=== PATIENT | female | born 1960 | race American Indian/Alaskan Native ===

== ENCOUNTER → 2022-01-25 | Outpatient (CLI) | payer OTHER ==
[~2022-01-25] MED LIST: ALPR.5 PO; ALPR1; BELPTAB PO; BUSP10; CIPR500 PO; ESTR2; Mobic15 MG; OMEP20ER PO; OXYACE5T PO; Omeprazole20 M1; PROG100; PROM25 PO; Pravachol40 MG; Prozac20 MG; [UNRECOGNIZED DRUG - OTHER]
[2022-01-26 15:09] LABS: HPV 16 Negative (Negative); HPV 18 Negative (Negative); HPV OTHER HR TYPES Negative (Negative)
== END | disposition home or self-care (01) ==
LOC: LAB 17:07 → LAB SHORT 17:07
PROVIDERS: Obstetrics & Gynecology
DX: Z01.419 Encounter for gynecological examination (general) (routine) without abnormal findings (principal)
CPT/HCPCS: 87624; G0123

== ENCOUNTER 2023-10-02 15:52 | Emergency (ER) | payer OTHER ==
[~2023-10-02] VITALS: Ht 165.1 cm; Wt 81.7 kg
[2023-10-02 16:06] VITALS: BP 149/78
[2023-10-02 16:32] LABS: BASOPHILS ABSOLUTE AUTO 0.11 K/mm3 (0.00-0.23); BASOPHILS PERCENT AUTO 1 % (0-2); EOSINOPHILS ABSOLUTE AUTO 0.56 K/mm3 (0.00-0.68); EOSINOPHILS PERCENT AUTO 4 % (0-6); Hematocrit 38.8 % (33.0-51.0); Hemoglobin 13.3 g/dL (11.5-16.0); IMMATURE GRAN ABSOLUTE AUTO 0.08 K/mm3 (0.00-0.10); IMMATURE GRAN PERCENT AUTO 1 % (0-1); LYMPHOCYTES ABSOLUTE AUTO 1.77 K/mm3 (0.84-5.20); LYMPHOCYTES PERCENT AUTO 11 % (21-46); MONOCYTES ABSOLUTE AUTO 1.09 K/mm3 (0.16-1.47); MONOCYTES PERCENT AUTO 7 % (4-13); Mean Corpuscular HGB 29.1 pg (26.0-34.0); Mean Corpuscular HGB Conc 34.3 g/dL (31.5-36.5); Mean Corpuscular Volume 85 fL (80-100); Mean Platelet Volume 9.3 fL (9.1-12.4); NEUTROPHILS PERCENT AUTO 77 % (41-73); Platelet Count 549 K/mm3 (150-400); RDW Coefficient Variation 12.8 % (11.7-14.2); RDW Standard Deviation 39.3 fL (35.1-46.3); Red Blood Cell Count 4.57 M/mm3 (3.80-5.20); White Blood Cell Count 16.01 K/mm3 (4.00-11.30)
[2023-10-02 17:01] LABS: Influenza A, PCR NEGATIVE (NEGATIVE); Influenza B, PCR NEGATIVE (NEGATIVE); Resp Syncytial Virus, PCR NEGATIVE (NEGATIVE); SARS-Cov-2 (COVID-19) PCR, MMC NEGATIVE (NEGATIVE)
[2023-10-02 17:05] LABS: Albumin, Blood 3.7 g/dL (3.4-5.0); Albumin/Globulin Ratio 0.8 (0.8-1.8); Bilirubin, Total 0.5 mg/dL (0.1-1.0); Bun/Creatinine Ratio 13.3 (12.0-20.0); Calcium, Blood 9.8 mg/dL (8.5-10.1); Creatinine, Blood 0.68 mg/dL (0.40-1.00); Globulin, Blood 4.8 g/dL (2.2-4.0); Potassium, Blood 3.6 mmol/L (3.5-5.5); Total Protein, Blood 8.5 g/dL (6.4-8.2)
== END 2023-10-02 17:22 | disposition home or self-care (01) ==
LOC: ER 15:52
PROVIDERS: Physician Assistant
DX: J18.9 Pneumonia, unspecified organism (principal); Z79.899 Other long term (current) drug therapy; Z87.891 Personal history of nicotine dependence
CPT/HCPCS: 0241U; 36415; 80053; 85025; 99283

== ENCOUNTER 2024-09-06 08:37 | Day surgery (SDC) | payer OTHER ==
[~2024-09-06 08:37] MED LIST changes: -ALPR1; -ESTR2; +Estradiol0.5 MG PO; +MELO7.5 PO; -Mobic15 MG
[2024-09-10] MEDS ORDERED: Aspir 8181 MG PO (13:36)
[2024-09-10] MEDS ORDERED: LOPID600 MG PO (13:38)
[2024-09-10] MEDS ORDERED: MAGNESIUM OXID500 MG (13:38)
[2024-09-10] MEDS ORDERED: MELO7.5 (13:39)
[2024-09-10] MEDS ORDERED: METO10 PO (13:41)
[2024-09-10] MEDS ORDERED: PANT40 PO (13:42)
[2024-09-10] MEDS ORDERED: VENL75ER PO (13:43)
[2024-09-10] MEDS ORDERED: SUCR1 PO (13:43)
[2024-09-10] MEDS ORDERED: Vitamin B Comple1 EA PO (13:43)
== END 2024-09-06 23:00 | disposition home or self-care (01) ==
LOC: MOI US 08:37
DX: C50.411 Malignant neoplasm of upper-outer quadrant of right female breast (principal); N63.11 Unspecified lump in the right breast, upper outer quadrant; Z17.0 Estrogen receptor positive status [ER+]; Z79.82 Long term (current) use of aspirin; Z79.899 Other long term (current) drug therapy
CPT/HCPCS: 19285; 77065; A4648

== ENCOUNTER 2024-09-16 06:11 | Day surgery (SDC) | payer OTHER ==
[2024-09-16] VITALS (9 sets, daily range): BP systolic 125–156; BP diastolic 75–99
[~2024-09-16 06:11] MED LIST changes: +Aspir 8181 MG PO; +CeFAZolin Sodium 2,000 MG in NS 100 ML IV SCH; +LOPID600 MG PO; +Lactated Ringer's 1,000 ML IV SCH; +MAGNESIUM OXID500 MG; +MELO7.5; +METO10 PO; +PANT40 PO; +SUCR1 PO; +VENL75ER PO; +Vitamin B Comple1 EA PO
[2024-09-16] MEDS ORDERED: propofoL 20 ML IV ONE ×3 (06:43→07:32)
[2024-09-16] MEDS ORDERED: FentaNYL Citrate 50 MCG/ML 2 ML Injection ONE (06:43)
[2024-09-16] MEDS ORDERED: Ondansetron HCl 2 MG / ML 2ML Vial ONE (06:44)
[2024-09-16] MEDS ORDERED: Dexamethasone Sod Phos 10 MG/ML 1ML VIAL ONE (06:44)
[2024-09-16] MEDS ORDERED: Bupivacaine 0.5% HCl 5 MG/ML 30MLVIAL ONE (07:02)
[2024-09-16] MEDS ORDERED: Midazolam HCl 1MG / ML 2ML Vial ONE (07:15)
[2024-09-16] MEDS ORDERED: Glycopyrrolate 0.2 MG/ML 5ML VIAL ONE (07:41)
[2024-09-16] MEDS ORDERED: Ketorolac Tromethamine 30mg Vial ONE (08:02)
[2024-09-16] MEDS ORDERED: HYDROcodone 5-APAP 325 TAB PO PRN (08:45)
--- NOTE | 2024-09-16 09:24 | NUR ---
Discharge instructions reviewed with patient. Patient verbalizes understanding. Copy given to patient to take home. Dressings c/d/i. Breast binder in place. Prescriptions sent electeronically. Patient States Post-Procedure ride home has been arranged. Discharged via wheelchair to private car for ride home.
== END 2024-09-16 09:26 | disposition home or self-care (01) ==
LOC: ORSCMMR 06:11 → ORD 07:30 → ORSCMMR 07:30
PROVIDERS: Surgery
PROC: 0HBT0ZX Excision of Right Breast, Open Approach, Diagnostic (ICD-10-PCS; principal; 2024-09-16 07:30)
DX: C50.911 Malignant neoplasm of unspecified site of right female breast (principal); Z17.0 Estrogen receptor positive status [ER+]; Z17.21 Progesterone receptor positive status; Z17.32 Human epidermal growth factor receptor 2 negative status; G47.33 Obstructive sleep apnea (adult) (pediatric); K21.9 Gastro-esophageal reflux disease without esophagitis; E66.9 Obesity, unspecified; Z68.33 Body mass index [BMI] 33.0-33.9, adult; Z79.899 Other long term (current) drug therapy
CPT/HCPCS: 76098; 88307; 88341; 88342; 88360; J0690; J1100; J1885; J2250; J2405; J2704; J3010; J7120

== ENCOUNTER 2024-10-07 08:16 | Day surgery (SDC) | payer OTHER ==
[~2024-10-07] VITALS: Ht 165.1 cm; Wt 89.5 kg
[2024-10-07] VITALS (16 sets, daily range): BP systolic 112–135; BP diastolic 59–83
[~2024-10-07 08:16] MED LIST changes: +Bupivacaine 0.5% HCl 5 MG/ML 30MLVIAL ONE; +CeFAZolin Sodium 2,000 MG VIAL ONE
--- NOTE | 2024-10-07 09:09 | NUR ---
History, Chart, Medications and Allergies reviewed before start of procedure. Pre-Op teaching done. Pt verbalizes understanding. Patient confirms NPO status and agrees with scheduled surgery. Patient States Post-Procedure ride home has been arranged WITH . PT UNABLE TO REMOVE 4TH FINGER RING ON L HAND AND 4TH FINGER RING ON R HAND. LOANEY CONSENT SIGNED. PT REQUESTS TO LEAVE UNDERWEAR ON. BASKET PATCHER NOTIFIED.
[2024-10-07] MEDS ORDERED: Midazolam HCl 1MG / ML 2ML Vial ONE (10:01)
[2024-10-07] MEDS ORDERED: Rocuronium Bromide 10 MG/ML 5ML Injection IV ONE (10:01)
[2024-10-07] MEDS ORDERED: FentaNYL Citrate 50 MCG/ML 2 ML Injection ONE ×2 (10:01→12:22)
[2024-10-07] MEDS ORDERED: Dexamethasone Sod Phos 10 MG/ML 1ML VIAL ONE (10:01)
[2024-10-07] MEDS ORDERED: Ondansetron HCl 2 MG / ML 2ML Vial ONE (10:01)
[2024-10-07] MEDS ORDERED: propofoL 20 ML IV ONE ×3 (10:01→10:31)
[2024-10-07] MEDS ORDERED: Ketorolac Tromethamine 30mg Vial ONE (11:45)
[2024-10-07] MEDS ORDERED: HYDROcodone 5-APAP 325 TAB PO PRN (11:50)
[2024-10-07] MEDS ORDERED: Metoclopramide HCl 5MG / ML 2ML Vial ONE (12:22)
--- NOTE | 2024-10-07 13:07 | NUR ---
1300 RECEIVED PT FROM PACU AWAKE, HAS RT BREAST AND AXILLARY INCISION WITH EXOFEN D&I,
--- NOTE | 2024-10-07 13:49 | NUR ---
1330 PT HAVING NO PAIN, VSS TOLERATED COFFEE AND PUDDING. RIGHT BREAST INCISION AND RT AXILLARY INCISION INTACT AND CLEAR WITH SKIN GLUE. DC INSTRUCTS GIVEN. 1345 DC HOME TO CAR VIA W/C, CARE TURNED OVER TO
== END 2024-10-07 23:00 | disposition home or self-care (01) ==
LOC: ORSCMMR 08:16 → NM 08:16 → ORSCMMR 08:17 → NM 08:30 → ORSCMMR 23:00
PROVIDERS: Surgery
PROC: 0HBT0ZZ Excision of Right Breast, Open Approach (ICD-10-PCS; principal; 2024-10-07 09:30)
PROC: 07B50ZX Excision of Right Axillary Lymphatic, Open Approach, Diagnostic (ICD-10-PCS; principal; 2024-10-07 09:30)
DX: C50.911 Malignant neoplasm of unspecified site of right female breast (principal); Z17.0 Estrogen receptor positive status [ER+]; Z17.21 Progesterone receptor positive status; G47.33 Obstructive sleep apnea (adult) (pediatric); K21.9 Gastro-esophageal reflux disease without esophagitis; Z79.899 Other long term (current) drug therapy
CPT/HCPCS: 38792; 88307; 88342; A9520; J0690; J1100; J1885; J2250; J2405; J2704; J2765; J3010; J7120

== ENCOUNTER → 2024-11-05 | Outpatient (CLI) | payer OTHER ==
[~2024-11-05] MED LIST changes: -Bupivacaine 0.5% HCl 5 MG/ML 30MLVIAL ONE; -CeFAZolin Sodium 2,000 MG VIAL ONE; -CeFAZolin Sodium 2,000 MG in NS 100 ML IV SCH; -Lactated Ringer's 1,000 ML IV SCH
== END ==
LOC: LAB SHORT 09:17 → LAB 09:17
DX: C50.411 Malignant neoplasm of upper-outer quadrant of right female breast (principal); Z17.0 Estrogen receptor positive status [ER+]
CPT/HCPCS: 88342

== ENCOUNTER → 2025-02-27 | Outpatient (CLI) | payer OTHER ==
[2025-02-27 17:17] LABS: Source, Urine Clean Catch
[2025-02-27 18:53] LABS: Bilirubin, Urine Neg (Neg); Color, Urine Yellow (P-Yellow); Glucose Qualitative, Urine Neg (Neg); Ketones, Urine Neg (Neg); Leukocyte Esterase, Urine 1+ (Neg); Protein, Urine 1+ (Neg); Specific Gravity, Urine 1.020 (1.003-1.022); Urobilinogen, Urine NORM (Normal)
[2025-02-27 19:14] LABS: Bacterial Vaginosis PCR Negative (NEGATIVE); Candida Group, PCR NOT DETECTED (NOT DETECT); Candida glabrata-krusei, PCR NOT DETECTED (NOT DETECT)
[2025-02-27 19:16] LABS: Red Blood Cells, Urine 0-2 /hpf (0-2)
== END ==
LOC: LAB 15:19 → LAB SHORT 15:19
PROVIDERS: Obstetrics & Gynecology
DX: Z01.419 Encounter for gynecological examination (general) (routine) without abnormal findings (principal); N76.0 Acute vaginitis; R30.0 Dysuria
CPT/HCPCS: 81001; 81515; 87624; G0123